=== PATIENT | female | born 2000 ===

== ENCOUNTER 2021-04-12 18:28 | Emergency (ER) | payer OTHER, SELFPAY | END 2021-04-12 20:54 | disposition home or self-care (01) | LOC: ERS 18:28 | DX: O99.891 Other specified diseases and conditions complicating pregnancy (principal); M54.50 Low back pain, unspecified; Z3A.22 22 weeks gestation of pregnancy | CPT/HCPCS: 36415; 76815; 86900; 86901 ==

== ENCOUNTER 2022-11-25 11:21 | Emergency (ER) | payer OTHER | END 2022-11-25 12:47 | disposition home or self-care (01) | LOC: ERS 11:21 | DX: J02.9 Acute pharyngitis, unspecified (principal) | CPT/HCPCS: 87081; 87430; 99283 ==

== ENCOUNTER 2023-04-18 11:24 | Emergency (ER) | payer OTHER | END 2023-04-18 12:46 | disposition home or self-care (01) | LOC: ERS 11:24 | DX: H66.91 Otitis media, unspecified, right ear (principal) | CPT/HCPCS: 99282 ==